=== PATIENT | male | born 1980 | race Two or more races ===

== ENCOUNTER 2016-10-22 10:20 | Emergency (ER) | payer MEDICAID ==
[2016-10-22] MEDS ORDERED: NO HOME MEDICATION XX (10:28)
[2016-10-22] MEDS ORDERED: AMOXICILLIN500 M1 PO (11:51)
== END 2016-10-22 12:01 ==
LOC: EDMED 10:20
DX: J02.0 Streptococcal pharyngitis (principal)

== ENCOUNTER 2016-10-25 11:50 | Emergency (ER) | payer MEDICAID ==
[~2016-10-25 11:50] MED LIST: AMOXICILLIN500 M1 PO; NO HOME MEDICATION XX
[2016-10-25] MEDS ORDERED: PROMETHAZINE-C118 ML PO (13:35)
== END 2016-10-25 13:49 ==
LOC: EDMED 11:50
DX: J02.0 Streptococcal pharyngitis (principal); J40 Bronchitis, not specified as acute or chronic; M25.561 Pain in right knee; G89.29 Other chronic pain